=== PATIENT | male | born 1970 | race Caucasian/White ===

== ENCOUNTER 2016-11-17 13:42 | Inpatient (IN) | payer OTHER ==
--- NOTE | ~2016-11-17 | CO ---
Unit #: [id number] #: [id number] Patient: RACHID JAIN [id number] [facility] [address] [place] [address] [id number] I MR#: [id number] NAME: RACHID JAIN ROOM: [facility] Age: 46 Sex: M Admission Date: 11/17/2016 : 1970 Attending Physician: Bonilla Portillo M.D. Primary Care Physician: Generic Doctor Not In System CONSULTATION REPORT ORDERING PROVIDER Dr. Portillo. REASON FOR CONSULT Diabetic management. Nursing called with a critical blood sugar over 500. Yesterday, they reported that his average blood sugars have been ranging in the 300 and 400, and they were requesting an insulin orders. He was given an immediate dose of 25 units of NovoLog and his Levemir was increased by 10 units. Today, his blood sugars fasting is 187, before lunch with 488. It does not appear that he is compliant with a diabetic diet. We will continue to monitor blood sugars. No further changes to insulin at this time indication. Dictated by... Viv Rahman A.P.R.N. for Ana Gilliam/aníbal TD: 11/21/2016 20:06 JOB #: [id number] CONSULTATION REPORT Page 1 of 1 X VIV RAHMAN APRN CONSULTATION REPORT
--- NOTE | ~2016-11-17 | PN ---
Unit #: [id number] #: [id number] Patient: RACHID CORTES [id number] [facility] [address] [place] [address] [id number] MR#: [id number] NAME: RACHID CORTES ROOM: [facility] Age: 46 Sex: M Admission Date: 11/17/2016 : 1970 Attending Physician: Bonilla Portillo M.D. Admitting Physician: Bonilla Portillo M.D. Primary Care Physician: Generic Doctor Not In System [facility] PROGRESS NOTES DATE 11/18/2016 DISCUSSION Mr. Cortes is a 46-year-old white male who was seen today and chart was reviewed and case was discussed with the staff. He has been anxious, withdrawn though has not shown any agitation, irritability or behavioral problems and has been cooperative with treatment recommendations and has been taking medications and tolerating them fairly well with no reported side effects. MENTAL STATUS EXAMINATION Middle-aged white male who was casually dressed with fair personal hygiene and appears to be in no acute distress or discomfort. He was awake and alert with impaired attention and concentration. His mood was anxious with congruent affect. His speech is slow and restricted in content. His thought processes were disorganized with some looseness of associations and flight of ideas. His insight and judgement remains significantly impaired. TREATMENT PLAN 1. Will continue him on his current medications and detox protocol. Will monitor his response and make further adjustments as needed. 2. Will continue to follow up. Dictated by... Ana Herr/ermias TD: 11/18/2016 16:04 JOB #: [id number] Unit #: [id number] #: [id number] Patient: RACHID CORTES PROGRESS NOTES Page 1 of 1 X Bonilla Portillo MD PROGRESS NOTE
--- NOTE | ~2016-11-17 | A ---
[facility] Nutrition Therapy DATE: 11/19/16 Patient: RACHID JAIN Physician: RAFIF [address] Room/Bed: [address], Zip: [place] [address] Admit Date: 11/17/16 Date of : [birth year] Height: 5 10 Weight: [phone] NUTRITIONAL ASSESSMENT: REASON: NUTRITION RISK POINT- UNINTENTIONAL WEIGHT LOSS, CONSULT "DIETARY CONSULT, DIABETIC MANAGEMENT" PATIENT ADMITTED FOR ETOH ABUSE PMH: LONG HX ETOH ABUSE, DM (NON-COMPLIANT), HTN, HLD, HYPOTHYROIDISM Anthropometrics: HT: 5'10, WT: 170#, BMI: 24.4, %IBW: 102 Labs: NO LABS AVAILABLE Meds: NOVOLOG, LEVEMIR, DESYREL, MVI, DETOX PROTOCOL Assessment: PATIENT IS A 6 Y/O MALE ADMITTED FOR ETOH DETOX. PATIENT IS CURRENTLY UNEMPLOYED, HOMELESS, SMOKES 1 PPD, DRINKS A FIFTH OF ETOH DAILY, AND HAS FREQUENT COCAINE USE. PATIENT HAS A HX OF INPATIENT CHEMICAL DEPENDENCY TREATMENT. PATIENT STATED A GOOD APPETITE WITH NO RECENT WEIGHT CHANGES. NURSING REPORTS GOOD PO INTAKES AND THAT PATIENT HAS BEEN NON-COMPLIANT WITH HIS DIET. PATIENT HAS ALSO BEEN NON-COMPLIANT WITH HIS MEDICATIONS PRIOR TO ADMIT. PATIENT'S POC GLUCOSE LEVELS IN THE LAST 24 HOURS HAVE RANGED FROM 160-517 MG/DL. THERE ARE NO OTHER NUTRITION LAB VALUES AVAILABLE. THERE ARE NO SKIN OR GI ISSUES NOTED ATT. PATIENT'S BMI IS WITHIN A HEALTHY RANGE AND HE IS 102% OF HIS IBW. PATIENT IS ON A CC DIET WITH NO CAFFEINE. Dx: ALTERED NUTRIENT NEEDS R/T CURRENT CONDITION, DM AEB NEED FOR THERAPEUTIC DIET Intervention: CC DIET, MEDS PER MD, DETOX, PSYCH Monitoring, Evaluation and Goals: 1. ADEQUATE PO INTAKES >50% OF MEALS 2. PREVENT, CORRECT MICRO/MACRO NUTRIENT DEFICIENCIES MONITOR: WEIGHTS, LABS, PO/FLUID INTAKES Recommendations: 1. CONTINUE CC DIET WITH NO CAFFEINE TOLERATED. IF PATIENT HAS C/O HUNGER OFFER SNACKS BETWEEN MEALS 2. ORDER BMP AND HGBA1C TO ASSESS NUTRITIONAL STATUS OF PATIENT 3. ENCOURAGE ADEQUATE PO AND FLUID INTAKES AND COMPLIANCE WITH DIET/MEDICATIONS [facility] Therapy DATE: 11/19/16 Patient: RACHID JAIN Physician: COBY Address: [address] [facility] Room/Bed: [address], Zip: [place] [address] Admit Date: 11/17/16 Date of : [birth year] Height: 5 10 Weight: [phone] TO F/U PER PROTOCOL AND PRN R/T PATIENT MILDLY COMPROMISED Respectfully, NARESH LUND RD, LD [facility] cc: client file
--- NOTE | ~2016-11-17 | PN ---
Unit #: [id number] #: [id number] Patient: RACHID CORTES [id number] [facility] [address] [place] [address] [id number] I MR#: [id number] NAME: RACHID CORTES ROOM: [facility] Age: 46 Sex: M Admission Date: 11/17/2016 : 1970 Attending Physician: Bonilla Portillo M.D. Admitting Physician: Bonilla Portillo M.D. Primary Care Physician: Generic Doctor Not In System [facility] PROGRESS NOTES DATE 11/19/2016 DISCUSSION Mr. Cortes is a 46-year-old white male with alcohol dependence and mood disorder who was seen today and chart was reviewed and case was discussed with the staff. He has been anxious, withdrawn, depressed and agitated and irritable and reports not feeling good. Meanwhile, he has been cooperative with treatment recommendations and has been taking medications and tolerating them fairly well with no reported side effects. MENTAL STATUS EXAMINATION Middle-aged white male who was casually dressed with fair personal hygiene and appears to be in no acute distress or discomfort. He was awake and alert on interaction with intact orientation. His mood was anxious with congruent affect. He denies any suicidal or homicidal ideations and also denies any auditory or visual hallucinations. His insight and judgement remains slightly impaired. TREATMENT PLAN 1. Will continue on his current medications and treatment protocol. Will monitor his response to medications and make further adjustments as needed. 2. Will continue to follow up. Dictated by... Ana Herr/ermias TD: 11/19/2016 18:08 JOB #: [id number] Unit #: [id number] #: [id number] Patient: RACHID CORTES PROGRESS NOTES Page 1 of 1 X Bonilla Portillo MD PROGRESS NOTE
--- NOTE | ~2016-11-17 | DS ---
Unit #: [id number] #: [id number] Patient: RACHID CORTES [id number] [facility] [place] [address] [id number] I MR#: [id number] NAME: RACHID CORTES ROOM: 84 Age: 46 Sex: M Admission Date: 11/17/2016 : 1970 Discharge Date: 11/22/2016 Attending Physician: Bonilla Portillo M.D. DISCHARGE SUMMARY IDENTIFYING DATA Mr. Cortes is a 46-year-old white male, who was transferred to us from the hospital emergency room. DISCHARGE DIAGNOSES Psychiatric: Alcohol dependence, moderate and acute withdrawals; alcohol-induced mood disorder. Medical: Diabetes mellitus. Stressors: Moderate psychosocial stressors. HISTORY OF PRESENT ILLNESS Please see initial psychiatric evaluation for details. PAST PSYCHIATRIC HISTORY Please see initial psychiatric evaluation for details. PAST MEDICAL HISTORY Please see initial psychiatric evaluation for details. HOSPITAL COURSE The patient was admitted to the adult chemical dependency unit at [facility] and was oriented to the hospital environment. Routine p.r.n. medications were initiated and he was started on the detox protocol. However, he was seen to be once again agitated, irritable, and showing very poor insight into situation and constantly threatening to leave because he is not getting enough food, even though, the dietary consultation was requested as he is diabetic, he was constantly making statements "I'm pissed off, I'm angry." However, as soon as he finished the detox, he was not feeling to stay here any longer and as such, it was decided that he will be discharged home and will continue treatment on an outpatient basis. DISCHARGE MEDICATIONS Levemir 40 units at bedtime for diabetes. DISCHARGE CONDITION Stable. PROGNOSIS Fair. Dictated by... Bonilla Portillo M.D. Unit #: [id number] #: [id number] Patient: RACHID CORTES IAA/modl TD: 11/22/2016 06:38 JOB #: [id number] DISCHARGE SUMMARY Page 1 of 1 X Bonilla Portillo MD X DISCHARGE SUMMARY
--- NOTE | ~2016-11-17 | CO ---
Unit #: [id number] #: [id number] Patient: RACHID JAIN [id number] [place] [address] [id number] I MR#: [id number] NAME: RACHID JAIN ROOM: 84 Age: 46 Sex: M Admission Date: 11/17/2016 : 1970 Attending Physician: Bonilla Portillo M.D. Primary Care Physician: Generic Doctor Not In System Consultation Date: 11/18/2016 CONSULTATION REPORT YING Moya is a 46-year-old with diabetes mellitus. His treatment was outlined in his admission H and P dated 11/17/2016. We will add a NovoLog sliding scale. Monitor Accu-Cheks a.c. and h.s. and adjust accordingly. Dictated by... Priya Brunner P.A.-C. for Ana Gilliam/aníbal TD: 11/20/2016 12:01 JOB #: [id number] CONSULTATION REPORT Page 1 of 1 X Priya Brunner CONSULTATION REPORT
--- NOTE | ~2016-11-17 | PN ---
Unit #: [id number] #: [id number] Patient: RACHID CORTES [id number] [facility] [address] [place] [address] [id number] I MR#: [id number] NAME: RACHID CORTES ROOM: [facility] Age: 46 Sex: M Admission Date: 11/17/2016 : 1970 Attending Physician: Bonilla Portillo M.D. Admitting Physician: Bonilla Portillo M.D. Primary Care Physician: Generic Doctor Not In System [facility] PROGRESS NOTES DATE 11/20/2016 DISCUSSION Mr. Cortes is a 46-year-old, white male with substance abuse and mood disorder who was seen today and chart was reviewed and case was discussed with the staff. He was laying in his bed and was seen to be anxious and restless and stated that he is feeling agitated and irritable. Meanwhile, he has been taking medications and tolerating them fairly well. MENTAL STATUS EXAM Middle-aged white male who was casually dressed with fair personal hygiene, appears to be in no acute distress or discomfort. He was awake and alert on interaction with intact orientation. His mood was anxious with congruent affect. His speech was slow and tangential. His thought processes were disorganized with some looseness of associations. His insight and judgement remains slightly impaired. TREATMENT PLAN 1. We will continue him on his current medications and treatment protocol. We will monitor his response to the medication and make further adjustment as needed. 2. We will continue to follow up. Dictated by... Ana Herr/alfonzo TD: 11/22/2016 00:31 JOB #: [id number] Unit #: [id number] #: [id number] Patient: RACHID CORTES PROGRESS NOTES Page 1 of 1 X Bonilla Portillo MD PROGRESS NOTE
--- NOTE | ~2016-11-17 | HP ---
Unit #: [id number] #: [id number] Patient: ABDI JAIN [id number] [place] [address] [id number] I MR#: [id number] NAME: ABDI JAIN ROOM: P184 Age: 46 Sex: M Admission Date: 11/17/2016 : 1970 Attending Physician: Bonilla Portillo M.D. Admitting Physician: Bonilla Portillo M.D. Primary Care Physician: Generic Doctor Not In System HISTORY AND PHYSICAL HISTORY OF PRESENT ILLNESS Abdi is a 46 year old admitted to [facility] because of his continued abuse of alcohol. He has had other admissions to this facility for the same. PAST MEDICAL HISTORY 1. Long history of alcohol abuse. 2. Diabetes mellitus, he is noncompliant with his medications. 3. High blood pressure. 4. Hyperlipidemia. 5. Hypothyroidism. PAST SURGICAL HISTORY 1. Extraction of his right eye after an injury. 2. Appendectomy. 3. Bilateral wrists. ALLERGIES No known drug allergies. SOCIAL HISTORY Smokes greater than one pack per day. Drinks a fifth of liquor on a daily basis and admits to using cocaine on occasion. FAMILY HISTORY Medically noncontributory. REVIEW OF SYSTEMS CONSTITUTIONAL: No fever or chills. HEENT: Denies any sore throat, ear pain or runny nose. CARDIOVASCULAR: Denies chest pain, irregular heart rhythm or palpitations. CHEST: Denies shortness of breath or cough. No hemoptysis. GASTROINTESTINAL: Denies nausea, vomiting, diarrhea or chronic constipation. ENDOCRINE: Denies history of increased thirst or urination. No recent significant weight loss or gain. GENITOURINARY: Denies dysuria, frequency, or hematuria. SKIN: Denies any rashes. HEMATOLOGIC: Denies history of increased bleeding or bruising. MUSCULOSKELETAL: Denies any hot, swollen joints. No generalized muscle pain. NEUROLOGIC: Denies problems with his speech. Right eye is absent otherwise no problems with the vision in his left. No frequent severe Unit #: [id number] #: [id number] Patient: ABDI JAIN headaches. No numbness, tingling or weakness in any extremity. Denies loss of bladder or bowel control. CURRENT MEDICATIONS Detox protocol Levemir 22 units q.h.s. NovoLog sliding scale PHYSICAL EXAMINATION GENERAL: Alert, well-nourished, in no apparent distress. VITAL SIGNS: Blood pressure 132/86, heart rate 80, respirations 16, temperature 98.6. WEIGHT: 170 pounds. HEIGHT: 5'10". SKIN: Warm and dry without rash or lesion. HEENT: Normocephalic. TMs not viewed. Oral and nasal passages clear. Left conjunctivae is clear. Pupil is round and reactive to light. Extraocular movements intact. Right eye is missing. NECK: Supple without lymphadenopathy or thyromegaly. HEART: Regular rate and rhythm without murmur. LUNGS: Clear. ABDOMEN: Soft, nontender. : Not done. EXTREMITIES: No evidence of cyanosis, clubbing or edema. Moves all extremities without focal deficit. NEUROLOGICAL: Grossly within normal limits. Cranial Nerves: II: Visual gaxiola are intact in the left eye. Right eye is absent. III, IV AND : Extraocular movements intact in the left eye. Pupils are equal, round and reactive to light on the left. Right eye is absent. V: Facial sensation is grossly normal. VII: Facial movements and expression are normal. VIII: Auditory acuity grossly intact. IX, X: Uvula is midline. Phonation is normal. XI: Patient shrugs shoulders and turns head normally. XII: Tongue protrudes in the midline. Sensory and Motor Function: Sensory and motor sensation is grossly normal. Motor: moves all extremities well. Coordination: Gait is normal. Deep Tendon Reflexes: Intact. IMPRESSION Psychiatric admission RECOMMENDATIONS PSYCHIATRIC: Per psychiatrist. MEDICAL: I see no contraindications to participating in facility's activities. MEDICAL PROGNOSIS Good. MEDICAL CONDITION Stable. Unit #: [id number] #: [id number] Patient: ABDI JAIN Dictated by... Priya Brunner P.A.-C. for Ana Gilliam/alfonzo TD: 11/17/2016 21:29 JOB #: [id number] HISTORY AND PHYSICAL Page 1 of 1 X Priya Brunner HISTORY AND PHYSICAL
--- NOTE | ~2016-11-17 | PN ---
Unit #: [id number] #: [id number] Patient: RACHID CORTES [id number] [facility] [address] [place] [address] [id number] I MR#: [id number] NAME: RACHID CORTES ROOM: [facility] Age: 46 Sex: M Admission Date: 11/17/2016 : 1970 Attending Physician: Bonilla Portillo M.D. Admitting Physician: Bonilla Portillo M.D. Primary Care Physician: Generic Doctor Not In System [facility] PROGRESS NOTES DATE 11/21/2016 DISCUSSION Mr. Cortes is a 46-year-old, white male who was seen today and chart was reviewed and case was discussed with the staff. He once again was getting agitated and irritable and has been showing very poor frustration tolerance and any small thing has been ticking him off and getting him angry and agitated and has not really been able to control his temper and actually invest in treatment. MENTAL STATUS EXAM Middle-aged white male who was casually dressed with fair personal hygiene, appears to be in no acute distress or discomfort. He was awake and alert on interaction with intact orientation. His mood was anxious with congruent affect. His speech was slow and restricted in content. He denies any suicidal or homicidal ideation. His insight and judgement remains significantly impaired. TREATMENT PLAN 1. We will continue him on his current medications and treatment protocol. We will monitor his response to the medication and make further adjustments as needed. 2. We will continue to follow up. Dictated by... Ana Herr/alfonzo TD: 11/22/2016 04:35 JOB #: [id number] Unit #: [id number] #: [id number] Patient: RACHID CORTES PROGRESS NOTES Page 1 of 1 X Bonilla Portillo MD PROGRESS NOTE
--- NOTE | ~2016-11-17 | PA ---
Unit #: [id number] #: [id number] Patient: RACHID CORTES [id number] [facility] [address] [place] [address] [id number] I MR#: [id number] NAME: RACHID CORTES ROOM: P184 Age: 46 Sex: M Admission Date: 11/17/2016 : 1970 Date of Assessment: 11/17/2016 Attending Physician: Bonilla Portillo M.D. Admitting Physician: Bonilla Portillo M.D. Primary Care Physician: Generic Doctor Not In System PSYCHIATRIC ASSESSMENT DATE OF SERVICE 11/17/2016. IDENTIFYING DATA Mr. Cortes is a 46-year-old single white male, who is known to us from previous multiple encounters and is a resident of [place], [place], and was transferred to us from [facility] in [place], where he presented to the emergency room with a blood alcohol level of 0.110. CHIEF COMPLAINT "I'm an alcoholic." HISTORY OF PRESENT ILLNESS Mr. 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 SUBSTANCE ABUSE HISTORY The patient reports history of experimentation with cocaine, but alcohol has been his drug of choice as he reports that he has been drinking since he was 10 years old and currently has been drinking a fifth of vodka a day. PAST PSYCHIATRIC HISTORY The patient has had history [facility]. Review of the medical records indicate currently he is not active in treatment program, is not seeing a psychiatrist, and is not taking any psychotropic medications. PAST MEDICAL HISTORY Significant for hypertension, diabetes mellitus, hypothyroidism. ALLERGIES No known medication allergies. Unit #: [id number] #: [id number] Patient: RACHID CORTES PERSONAL AND SOCIAL HISTORY A 46-year-old white male, who reports that he is single, unemployed, and essentially homeless and has poor social support system. MENTAL STATUS EXAMINATION Middle-aged white male, who was casually dressed with fair personal hygiene, appears to be in no acute distress or discomfort. He was awake and alert on interaction with intact orientation to time, place, and person. His mood was anxious and depressed with a congruent affect. His speech was slow and goal directed. His thought processes were disorganized with some looseness of associations and suicidal ideations. His insight and judgment remain significantly impaired. DIAGNOSTIC IMPRESSION Psychiatric: Alcohol dependence, moderate and acute withdrawals; alcohol-induced mood disorder. Medical: None. Stressors: Moderate psychosocial stressors. TREATMENT PLAN 1. The patient has presented with history of mood disorder and has been decompensating and will need inpatient hospitalization for detoxification, safety, and stabilization. We will start him on detox protocol. We will closely monitor for any worsening withdrawal symptoms. 2. Supportive therapy was provided to the patient. 3. Safe, structured, and nourishing environment will be provided. ESTIMATED LENGTH OF STAY 5 to 7 days. ABILITY TO HELP SELF Limited. WILLINGNESS TO HELP SELF The patient appears to be willing to help self. STRENGTHS 1. Communicative. 2. Cooperative. PROBLEMS 1. Chronic dysphoric symptoms. 2. Poor social support system. DISCHARGE CRITERIA This will be contingent upon the patient's ability to show resolution of his depression and anxiety and his ability to stay safe to himself, particularly after discharge from the hospital. Dictated by... Ana Herr/aníbal TD: 11/18/2016 07:37 JOB #: [id number] Unit #: [id number] #: [id number] Patient: RACHID CORTES PSYCHIATRIC ASSESSMENT Page 1 of 1 X Bonilla Portillo MD X PSYCHIATRIC ASSESSMENT
== END 2016-11-22 09:39 | disposition home or self-care (01) | DRG 897 ==
LOC: P1E 13:42
PROC: HZ2ZZZZ Detoxification Services for Substance Abuse Treatment (ICD-10-PCS; principal; 2016-11-17)
DX: F10.239 Alcohol dependence with withdrawal, unspecified (principal); F10.24 Alcohol dependence with alcohol-induced mood disorder; I10 Essential (primary) hypertension; E78.5 Hyperlipidemia, unspecified; E03.9 Hypothyroidism, unspecified; F17.210 Nicotine dependence, cigarettes, uncomplicated; Z59.0 Homelessness; Z56.0 Unemployment, unspecified; E11.9 Type 2 diabetes mellitus without complications
CPT/HCPCS: 82947; 86592

== ENCOUNTER 2016-12-06 07:12 | Inpatient (IN) | payer OTHER ==
--- NOTE | ~2016-12-06 | PN ---
Unit #: [id number] #: [id number] Patient: RACHID CORTES [id number] [facility] [address] [place] [address] [id number] MR#: [id number] NAME: RACHID CORTES. ROOM: 86 Age: 46 Sex: M Admission Date: 12/06/2016 : 1970 Attending Physician: Bonilla Portillo M.D. Admitting Physician: Bonilla Portillo M.D. Primary Care Physician: Generic Doctor Not In System [facility] PROGRESS NOTES DATE December 08, 2016 DISCUSSION Mr. Cortes is a 46-year-old white male, who was seen today and chart was reviewed and the case was discussed with the staff. He remains anxious, withdrawn, and seclusive to himself. Meanwhile, he has been taking the medications and tolerating them fairly well with no reported side effects. MENTAL STATUS EXAMINATION Middle-aged white male, who was casually dressed with fair personal hygiene and appears to be in no acute distress or discomfort. He was awake and alert with impaired attention and concentration. His mood is anxious with a congruent affect. His speech is slow and tangential. His thought processes are disorganized with some looseness of associations. His insight and judgment remain significantly impaired. TREATMENT PLAN 1. We will continue him on his current medications and treatment protocol, and will monitor his response to the medications, and make further adjustments as needed. 2. We will continue to followup. Dictated by... Ana Herr/antwon TD: 12/08/2016 11:10 JOB #: [id number] Unit #: [id number] #: [id number] Patient: RACHID CORTES PROGRESS NOTES Page 1 of 1 X Bonilla Portillo MD PROGRESS NOTE
--- NOTE | ~2016-12-06 | A ---
[facility] Nutrition Therapy DATE: 12/08/16 Patient: RACHID JAIN Physician: COBY Address: NO PERMANENT ADDRESS Room/Bed: [address], Zip: [place] [address] Admit Date: 12/06/16 Date of : [birth year] Height: 5 10 Weight: [phone] NUTRITIONAL ASSESSMENT: REASON: CONSULT "DIETARY CONSULT" PATIENT ADMITTED FOR ETOH DETOX PMH: DM, HYPOTHYROIDISM, LONG HX ETOH ABUSE, HLD Anthropometrics: HT: 5'10", WT: 170#, BMI: 24.4 Labs: NO LABS AVAILABLE Meds: DETOX PROTOCOL, YOCASTA FERREIRA Assessment: PATIENT IS A 46 Y/O ADMITTED FOR ETOH DETOX. PATIENT IS CURRENTLY UNEMPLOYED, HOMELESS, SMOKES 1 PPD, DRINKS A FIFTH OF ETOH DAILY, AND HAS OCCASIONAL COCAINE USE. PATIENT STATED A GOOD APPETITE WITH NO WEIGHT CHANGES IN MONTHS. NURSING REPORTS GOOD PO INTAKES. PATIENT HAS A HX OF INPATIENT PSYCH AND CHEMICAL DEPENDENCY TREATMENTS AND ALSO HAS BEEN NON-COMPLIANT WITH HIS MEDICATIONS. IT IS NOTED THAT PATIENT RELAPSED 1-2 DAYS FOLLOWING LAST D/C FROM FACILITY SEVERAL WEEKS AGO. RD ASSESSED 11/19/16- NOTE REVIEWED. PATIENT IS ON A CC DIET WITH NO CAFFEINE, DID NOT SCORE ANY NUTRITIONAL RISK POINTS, AND HAS NO GI OR SKIN ISSUES NOTED ATT. Dx: ALTERED NUTRIENT NEEDS R/T CURRENT CONDITION, DIABETES AEB NEED FOR THERAPEUTIC DIET Intervention: CC DIET, MEDS PER MD, DETOX, PSYCH Monitoring, Evaluation and Goals: 1. ADEQUATE PO INTAKES >50% OF MEALS 2. PREVENT, CORRECT MICRO/MACRO NUTRIENT DEFICIENCIES MONITOR: WEIGHTS, LABS, PO/FLUID INTAKES Recommendations: 1. CONTINUE CC DIET TOLERATED. IF PATIENT HAS C/O HUNGER OFFER SNACKS BETWEEN MEALS 2. ENCOURAGE ADEQUATE PO AND FLUID INTAKES 3. OBTAIN NEW LABS TO ASSESS PATIENT'S NUTRITIONAL STATUS RD TO F/U PER PROTOCOL AND PRN R/T PATIENT MILDLY COMPROMISED [facility] Nutrition Therapy DATE: 12/08/16 Patient: RACHID JAIN Physician: COBY Address: NO PERMANENT ADDRESS Room/Bed: [address], Zip: [place] [address] Admit Date: 12/06/16 Date of : [birth year] Height: 5 10 Weight: [phone] Respectfully, NARESH LUND RD, LD Food and Nutritional Services [facility] cc: client file
--- NOTE | ~2016-12-06 | DS ---
Unit #: [id number] #: [id number] Patient: RACHID CORTES [id number] [facility] [address] [place] [address] [id number] I MR#: [id number] NAME: RACHID CORTES ROOM: 86 Age: 46 Sex: M Admission Date: 12/06/2016 : 1970 Discharge Date: 12/10/2016 Attending Physician: Bonilla Portillo M.D. Primary Care Physician: Generic Doctor Not In System DISCHARGE SUMMARY IDENTIFYING DATA Mr. Cortes is a 46-year-old single white male who is a resident of [place], [place] and is known to us from previous encounter and was transferred to us from [facility] in [place]. DISCHARGE DIAGNOSES Psychiatric: Alcohol dependence, moderate and acute withdrawals; alcohol-induced mood disorder. Medical: Hypertension, diabetes mellitus, hypothyroidism. Stressors: Moderate psychosocial stressors. HISTORY OF PRESENT ILLNESS Please see initial psychiatric evaluation for details. PAST PSYCHIATRIC HISTORY Please see initial psychiatric evaluation for details. PAST MEDICAL HISTORY Please see initial psychiatric evaluation for details. HOSPITAL COURSE The patient was admitted to the adult chemical dependency and psychiatric unit at [facility] and was oriented to the hospital environment. Routine p.r.n. medications were initiated, and he was started on the alcohol detox protocol and was closely monitored. He was taking the medications regularly and was tolerating them fairly well and was able to show a decent therapeutic response and was able to come out of the detox without any complications and was willing to continue treatment on an outpatient basis. DISCHARGE MEDICATIONS NovoLog 6 units t.i.d. for diabetes, Levemir 48 units at bedtime for diabetes, and Carafate 1 g q.i.d. for irritable bowel syndrome. DISCHARGE CONDITION Stable. PROGNOSIS Fair. Dictated by... Bonilla Protillo M.D. Unit #: [id number] #: [id number] Patient: RACHID CORTES IAA/modl TD: 12/10/2016 09:45 JOB #: [id number] DISCHARGE SUMMARY Page 1 of 1 X Bonilla Portillo MD DISCHARGE SUMMARY
--- NOTE | ~2016-12-06 | PN ---
Unit #: [id number] #: [id number] Patient: RACHID CORTES [id number] [facility] [address] [place] [address] [id number] MR#: [id number] NAME: RACHID CORTES. ROOM: P186 Age: 46 Sex: M Admission Date: 12/06/2016 : 1970 Attending Physician: Bonilla Portillo M.D. Admitting Physician: Bonilla Portillo M.D. Primary Care Physician: Generic Doctor Not In System [facility] PROGRESS NOTES DATE 12/09/2016 DISCUSSION Mr. Cortes is a 46-year-old, white male who was seen today and chart was reviewed and case was discussed with the staff. He has been doing fairly well and appears to be coming out of the detox without any complications and has been taking the medications and tolerating them fairly well with no reported side effects. MENTAL STATUS EXAM Middle-aged white male who was casually dressed with fair personal hygiene, appears to be in no acute distress or discomfort. He was awake and alert on interaction with intact orientation. His mood was anxious with congruent affect. He denies any suicidal or homicidal ideation. His insight and judgement remains slightly impaired. TREATMENT PLAN 1. We will continue him on his current medications and treatment protocol. We will monitor his response to the medication and make further adjustments as needed. 2. We will continue to follow up. Dictated by... Ana Herr/alfonzo TD: 12/09/2016 22:31 JOB #: [id number] Unit #: [id number] #: [id number] Patient: RACHID CORTES [facility] PROGRESS NOTES Page 1 of 1 X Bonilla Portillo MD X PROGRESS NOTE
--- NOTE | ~2016-12-06 | CO ---
Unit #: [id number] #: [id number] Patient: ABDI JAIN [id number] [place] [address] [id number] MR#: [id number] NAME: ABDI JAIN ROOM: 86 Age: 46 Sex: M Admission Date: 12/06/2016 : 1970 Attending Physician: Bonilla Portillo M.D. Primary Care Physician: Generic Doctor Not In System Consultation Date: 12/06/2016 CONSULTATION REPORT SUBJECTIVE Abdi is a 46-year-old with diabetes. He has had numerous admissions to this facility because of his abuse of alcohol. On each admission, he has reported that he is noncompliant with his diabetic medications. We have again been asked to review his medications. The patient was seen for his admission H and P, and past medical history was outlined as was treatment for his medical problems. Please see H and P dated 11/17/2016. Dictated by... Priya Brunner P.A.-C. for Ana Gilliam/aníbal TD: 12/11/2016 00:59 JOB #: [id number] CONSULTATION REPORT Page 1 of 1 X Priya Brunner CONSULTATION REPORT
--- NOTE | ~2016-12-06 | PN ---
Unit #: [id number] #: [id number] Patient: RACHID CORTES [id number] [facility] [address] [place] [address] [id number] I MR#: [id number] NAME: RACHID CORTES. ROOM: 86 Age: 46 Sex: M Admission Date: 12/06/2016 : 1970 Attending Physician: Bonilla Portillo M.D. Admitting Physician: Bonilla Portillo M.D. Primary Care Physician: Generic Doctor Not In System [facility] PROGRESS NOTES DATE 12/07/2016 DISCUSSION Mr. Cortes is a 46-year-old, white male who was seen today and chart was reviewed and case was discussed with the staff. He has been anxious, withdrawn though has not shown any agitation, irritability or behavioral problems. He has been cooperative with treatment recommendations. He has been taking the medications and tolerating them fairly well with no reported side effects. MENTAL STATUS EXAM Middle-aged white male who was casually dressed with fair personal hygiene, appears to be in no acute distress or discomfort. He was awake and alert on interaction with intact orientation. His mood was anxious with congruent affect. His speech was slow and goal directed. He denies any suicidal or homicidal ideation. Also, denies any auditory or visual hallucinations. His insight and judgement remains slightly impaired. TREATMENT PLAN 1. We will continue him on his current medications and treatment protocol. We will monitor his response to the medication and make further adjustments as needed. 2. We will continue to follow up. Dictated by... Ana Herr/alfonzo TD: 12/07/2016 23:35 JOB #: [id number] Unit #: [id number] #: [id number] Patient: RACHID CORTES [facility] PROGRESS NOTES Page 1 of 1 X Bonilla Portillo MD PROGRESS NOTE
--- NOTE | ~2016-12-06 | HP ---
Unit #: [id number] #: [id number] Patient: ABDI JAIN [id number] [place] [address] [id number] I MR#: [id number] NAME: ABDI JAIN ROOM: P186 Age: 46 Sex: M Admission Date: 12/06/2016 : 1970 Attending Physician: Bonilla Portillo M.D. Admitting Physician: Bonilla Portillo M.D. Primary Care Physician: Generic Doctor Not In System HISTORY AND PHYSICAL NOTE Abdi is a 46 year old admitted to [facility] because of his continued abuse of alcohol. He was recently discharged after treatment for the same. The patient was seen and H and P dated 11/17/2016 was reviewed. This is current. No changes. Please see H and P dated 11/17/2016. Dictated by... Allen PoeAOg. for Ana Gilliam/alfonzo TD: 12/07/2016 01:10 JOB #: [id number] HISTORY AND PHYSICAL Page 1 of 1 X Priya Brunner HISTORY AND PHYSICAL
--- NOTE | ~2016-12-06 | PA ---
Unit #: [id number] #: [id number] Patient: RACHID JAIN [id number] [facility] [place] [place] [address] [id number] MR#: [id number] NAME: RACHID JAIN ROOM: P186 Age: 46 Sex: M Admission Date: 12/06/2016 : 1970 Date of Assessment: 12/06/2016 Attending Physician: Bonilla Portillo M.D. Admitting Physician: Bonilla Portillo M.D. Primary Care Physician: Generic Doctor Not In System PSYCHIATRIC ASSESSMENT DATE OF SERVICE 12/06/2016. IDENTIFYING DATA Mr. Jain is a 46-year-old, single, white male, who is a resident of [place], [place] and is known to us from previous encounter, was self-referred to the hospital and was transferred to us from [facility]. CHIEF COMPLAINT "I've been drinking a fifth a day for years." HISTORY OF PRESENT ILLNESS Mr. Jain is a 46-year-old white male with a long history of alcohol dependence, who was transferred to us from [facility] in [place], where he presented with blood alcohol level of 0.137. He reports that he has been drinking a fifth a day for years and reports recent detox at [facility] [place], but relapsed a couple of days after being discharged and currently has been drinking heavily and has significant withdrawal symptoms. Upon presentation, his CIWA score was 17 and endorsed increasing anxiety, headaches, tactile auditory and visual hallucination and was seen to have visible tremors and was in significant distress and discomfort. He also reports increasing depression, anxiety, poor social support system, stating that he has been homeless and has been decompensating and reports psychomotor retardation, feelings of hopelessness and helplessness, but denies any suicidal ideations, intent, or plan. SUBSTANCE ABUSE HISTORY The patient reports history of alcohol dependence and has been drinking since he was 10 years old and currently has been drinking a fifth a day. PAST PSYCHIATRIC HISTORY The patient has had a history of multiple inpatient psychiatric and chemical dependency treatments and has been diagnosed and treated for alcohol dependence. Review of the medical records indicate currently he is not active in any treatment program, is not seeing a psychiatrist, not taking psychotropic medications. PAST MEDICAL HISTORY Significant for hypertension, diabetes mellitus, and hypothyroidism. ALLERGIES Unit #: [id number] #: [id number] Patient: RACHID JAIN No known medication allergies. PERSONAL AND SOCIAL HISTORY A 46-year-old white male, who reports that he is single, unemployed, homeless and has poor social support system. MENTAL STATUS EXAMINATION Middle-aged white male, who was casually dressed with fair personal hygiene, appears to be in no acute distress or discomfort. He was awake and alert on interaction with intact orientation to time, place, and person. His mood was anxious and depressed with a congruent affect. His speech was slow and goal directed. He denies any suicidal or homicidal ideations and also denies any auditory or visual hallucinations. His insight and judgment remain significantly impaired. DIAGNOSTIC IMPRESSION Psychiatric: Alcohol dependence, moderate and acute withdrawals; alcohol-induced mood disorder. Medical: Diabetes mellitus, hypertension, hypothyroidism. Stressors: Moderate psychosocial stressors. TREATMENT PLAN 1. The patient has presented with a history of substance abuse and mood disorder, and has been decompensating and will need inpatient hospitalization for detoxification, safety, and stabilization. We will start him back on his home medications and detox protocol will be initiated as well. 2. Supportive therapy was provided to the patient. 3. Safe, structured, and nourishing environment will be provided. ESTIMATED LENGTH OF STAY 4 to 5 days. ABILITY TO HELP SELF Limited. WILLINGNESS TO HELP SELF The patient appears to be willing to help self. STRENGTHS 1. Communicative. 2. Cooperative. PROBLEMS 1. Chronic dysphoric symptoms. 2. Chronic chemical dependency. 3. Poor social support system. DISCHARGE CRITERIA This will be contingent upon the patient's ability to go through detox without having any significant withdrawal symptoms as well as the ability to stay safe to himself, particularly after discharge from the hospital. Dictated by... Unit #: [id number] #: [id number] Patient: RACHID JAIN Ana Herr/aníbal TD: 12/07/2016 06:50 JOB #: [id number] PSYCHIATRIC ASSESSMENT Page 1 of 1 X Bonilla Portillo MD X PSYCHIATRIC ASSESSMENT
[2016-12-07 09:42] LABS: URINE APPEARANCE CLEAR; URINE BILIRUBIN NEG (NEG); URINE BLOOD NEG (NEG); URINE COLOR YELLOW; URINE GLUCOSE >1000 MG/DL (NEG); URINE KETONE 1+ (NEG); URINE LEUKOCYTE ESTERASE NEG (NEG); URINE NITRATE NEG (NEG); URINE PH 6.5 (5-8); URINE PROTEIN NEG (NEG); URINE UROBILINOGEN 0.2 MG/DL (NEG)
[2016-12-07 10:35] LABS: AMPHETAMINE NEG (NEG); BARBITURATES NEG (NEG); BENZODIAZEPINES NEG (NEG); COCAINE NEG (NEG); MARIJUANA NEG (NEG); OPIATES NEG (NEG); TRICYCLIC ANTIDEPRESSANTS NEG (NEG); U METHADONE NEG (NEG)
== END 2016-12-10 09:49 | disposition home or self-care (01) | DRG 897 ==
LOC: P1E 13:39
PROVIDERS: Psychiatry & Neurology Psychiatry
PROC: HZ2ZZZZ Detoxification Services for Substance Abuse Treatment (ICD-10-PCS; principal; 2016-12-06)
DX: F10.239 Alcohol dependence with withdrawal, unspecified (principal); F10.24 Alcohol dependence with alcohol-induced mood disorder; I10 Essential (primary) hypertension; E11.9 Type 2 diabetes mellitus without complications; E03.9 Hypothyroidism, unspecified
CPT/HCPCS: 80307; 81003; 82947; 86592

== ENCOUNTER 2016-12-15 23:10 | Emergency (ER) | payer OTHER ==
[2016-12-16 02:30] LABS: BASOPHIL# 0.1 X10e3 (0-0.3); DIFF IND NO; EOSINOPHIL# 0.1 X10e3 (0-0.7); HEMATOCRIT 39.7 % (38.0-50.0); HEMOGLOBIN 13.2 gm/dL (13.0-16.0); LYMPHOCYTE# 2.2 X10e3 (1.0-3.5); LYMPHOCYTE% 27.1 % (17.0-45.0); MEAN CORPUSCULAR HEMOGLOBIN 31.9 PG (28-34); MEAN CORPUSCULAR HGB CONC 33.2 g/dL (30-36); MEAN PLATELET VOLUME 8.7 FL (6.5-11.5); MONOCYTE# 0.3 X10e3 (0-1.0); MONOCYTE% 3.9 % (3.0-12.0); NEUTROPHIL# 5.5 X10e3 (1.5-7.1); PLATELET COUNT 184 X10e3 (140-420); RED BLOOD COUNT 4.14 X10e (3.90-5.60); RED CELL DISTRIBUTION WIDTH 13.9 % (11.0-15.5); WHITE BLOOD COUNT 8.2 X10e3 (4.0-10.5)
[2016-12-16 03:16] LABS: CALCIUM SERUM 8.9 mg/dL (8.4-10.2); GLOM FILT RATE Estimated 88.6 mL/min (>60); POTASSIUM 4.1 mmol/L (3.5-5.1)
[2016-12-16 04:23] LABS: AMPHETAMINE NEG (NEG); BARBITURATES NEG (NEG); BENZODIAZEPINES NEG (NEG); COCAINE NEG (NEG); MARIJUANA NEG (NEG); OPIATES NEG (NEG); TRICYCLIC ANTIDEPRESSANTS NEG (NEG); U METHADONE NEG (NEG)
== END 2016-12-16 06:52 | disposition home or self-care (01) ==
LOC: CED 23:10
PROVIDERS: Nurse Practitioner
DX: F10.10 Alcohol abuse, uncomplicated (principal); I10 Essential (primary) hypertension; E11.9 Type 2 diabetes mellitus without complications; F17.200 Nicotine dependence, unspecified, uncomplicated; Y90.7 Blood alcohol level of 200-239 mg/100 ml
CPT/HCPCS: 36415; 80048; 80307; 82947; 85025; 96360; 96361; 99284; G0480

== ENCOUNTER 2016-12-16 14:06 | Emergency (ER) | payer OTHER ==
[2016-12-16 15:32] LABS: CALCIUM SERUM 8.5 mg/dL (8.4-10.2); GLOM FILT RATE Estimated 88.6 mL/min (>60); POTASSIUM 4.3 mmol/L (3.5-5.1)
== END 2016-12-16 18:30 | disposition home or self-care (01) ==
LOC: CED 14:06
PROVIDERS: Emergency Medicine
DX: T51.91XA Toxic effect of unspecified alcohol, accidental (unintentional), initial encounter (principal); E86.0 Dehydration; E11.65 Type 2 diabetes mellitus with hyperglycemia; I10 Essential (primary) hypertension; F17.210 Nicotine dependence, cigarettes, uncomplicated
CPT/HCPCS: 36415; 80048; 82947; 96360; 99284; G0480

== ENCOUNTER 2016-12-16 22:29 | Emergency (ER) | payer OTHER | END 2016-12-17 06:37 | disposition home or self-care (01) | LOC: CED 22:29 | DX: F10.129 Alcohol abuse with intoxication, unspecified (principal); E11.9 Type 2 diabetes mellitus without complications; F17.200 Nicotine dependence, unspecified, uncomplicated | CPT/HCPCS: 99282 ==

== ENCOUNTER 2017-01-08 07:00 | Inpatient (IN) | payer OTHER ==
--- NOTE | ~2017-01-08 | HP ---
Unit #: [id number] #: [id number] Patient: RACHID JAIN [id number] [place] [address] [id number] I MR#: [id number] NAME: RACHID JAIN. ROOM: 77 Age: 46 Sex: M Admission Date: 01/08/2017 : 1970 Attending Physician: Bonilla Portillo M.D. Admitting Physician: Bonilla Portillo M.D. Primary Care Physician: Primary Care Physician No HISTORY AND PHYSICAL HISTORY OF PRESENT ILLNESS The patient is a 46-year-old male admitted to [facility] on 01/08/2017 for alcohol abuse. PAST MEDICAL HISTORY 1. Diabetes 2. Hypertension 3. Hyperlipidemia 4. Hypothyroidism 5. GERD 6. Alcohol abuse 7. Nicotine dependence PAST SURGICAL HISTORY 1. Right eye removal 2. Appendectomy 3. Bilateral wrists SOCIAL HISTORY He is unemployed and homeless. He smokes one pack of cigarettes daily and drinks at least a fifth of alcohol per day. FAMILY MEDICAL HISTORY Noncontributory. ALLERGIES No known drug allergies. CURRENT MEDICATIONS 1. NovoLog 2. Levemir 3. Carafate REVIEW OF SYSTEMS CONSTITUTIONAL: No fever or chills. HEENT: Denies any sore throat, ear pain or runny nose. CARDIOVASCULAR: Denies chest pain, irregular heart rhythm or palpitations. CHEST: Denies shortness of breath or cough. No hemoptysis. GASTROINTESTINAL: Denies nausea, vomiting, diarrhea or chronic constipation. ENDOCRINE: Denies history of increased thirst or urination. No recent significant weight loss or gain. GENITOURINARY: Denies dysuria, frequency, or hematuria. Unit #: [id number] #: [id number] Patient: RACHID JAIN SKIN: Denies any rashes. HEMATOLOGIC: Denies history of increased bleeding or bruising. MUSCULOSKELETAL: Denies any hot, swollen joints. No generalized muscle pain. NEUROLOGIC: Denies problems with vision or speech. No frequent, severe headaches. No numbness, tingling or weakness in any extremities. Denies loss of bladder or bowel control. PHYSICAL EXAM GENERAL: He is awake, alert and oriented in no acute distress. VITAL SIGNS: Temperature 97.8, heart rate 58, respiration 18, blood pressure 138/90. HEIGHT: 5'10". WEIGHT: 190 pounds. SKIN: Warm and dry without rash or lesion. HEENT: Normocephalic. TMs not viewed. Oral and nasal passages clear. Conjunctivae clear. PERRLA. EOMs intact. NECK: Supple without lymphadenopathy or thyromegaly. HEART: Regular rate and rhythm without murmur. LUNGS: Clear. ABDOMEN: Soft, nontender. : Not done. EXTREMITIES: No evidence of cyanosis, clubbing or edema. Moves all without focal deficit. NEUROLOGICAL: Grossly within normal limits. Cranial Nerves: II: Visual gaxiola are intact. III, IV AND : Extraocular movements are intact. Pupils are equal, round and reactive to light. V: Facial sensation is grossly normal. VII: Facial movements and expression are normal. VIII: Auditory acuity grossly intact. IX, X: Uvula is midline. Phonation is normal. XI: Patient shrugs shoulders and turns head normally. XII: Tongue protrudes in the midline. Sensory and Motor Function: Sensory and motor sensation is grossly normal. Motor: moves all extremities well. IMPRESSION 1. Psychiatric admission. 2. Alcohol abuse. 3. Diabetes. 4. Hypertension. 5. Hyperlipidemia. 6. Hypothyroidism. 7. GERD. 8. Nicotine dependence. RECOMMENDATIONS Psychiatric per psychiatrist. MEDICAL: No contraindication to participate in facility activities. MEDICAL PROGNOSIS Fair. MEDICAL CONDITION Stable. Unit #: [id number] #: [id number] Patient: RACHID JAIN Dictated by... Julio C Hyatt/alfonzo TD: 01/10/2017 05:18 JOB #: [id number] HISTORY AND PHYSICAL Page 1 of 1 X MYNOR STEVEN APRN HISTORY AND PHYSICAL
--- NOTE | ~2017-01-08 | PA ---
Unit #: [id number] #: [id number] Patient: RACHID CORTES [id number] [facility] [place] [facility] [address] [place] [address] [id number] I MR#: [id number] NAME: RACHID CORTES. ROOM: P177 Age: 46 Sex: M Admission Date: 01/08/2017 : 1970 Date of Assessment: Attending Physician: Bonilla Portillo M.D. Admitting Physician: Bonilla Portillo M.D. Primary Care Physician: Primary Care Physician No PSYCHIATRIC ASSESSMENT DATE OF SERVICE 01/08/2017. IDENTIFYING DATA Mr. Cortes is a 46-year-old single white male, who is a resident of [place], [place], and is known to us from previous encounter, and was self-referred to the hospital on voluntary basis as a transfer from [facility], where he presented with alcohol intoxication. CHIEF COMPLAINT "I'm here due to detox from alcohol." HISTORY OF PRESENT ILLNESS Mr. Cortes is a 46-year-old white male with long history of alcohol dependence, who is known to us from previous encounter, and was recently discharged from my care and relapsed soon afterwards and now brought himself back to the hospital stating that he wants to detox from alcohol and that he has been drinking "pretty hard." He reports having shakes and not being well and headaches, and reports that he is unemployed and has been unemployed due to his drinking and that he is currently homeless and has poor social support system. He reports increasing depression, anxiety, irritability, restlessness, feelings of hopelessness and helplessness, but denies any suicidal ideations, intent, or plan. SUBSTANCE ABUSE HISTORY The patient reports occasional experimentation with cocaine, but reports alcohol to be his drug of choice and he reports that he has been drinking since he was 10 years old and currently has been drinking over a fifth a day. PAST PSYCHIATRIC HISTORY The patient has had history of multiple inpatient [facility]. Review of the medical records indicate that currently he is not active in any treatment program, is not seeing a psychiatrist, and is not taking any psychotropic medications. PAST MEDICAL HISTORY Hypertension and diabetes mellitus. ALLERGIES No known medication allergies. Unit #: [id number] #: [id number] Patient: RACHID CORTES PERSONAL AND SOCIAL HISTORY A 46-year-old white male, who reports that he is single, unemployed, and essentially homeless and has poor social support system. MENTAL STATUS EXAMINATION Middle-aged white male who was casually dressed and appears to be significantly older than his age and was dressed in the hospital gown and curled up in the bed and appears to be in some distress or discomfort. He was awake and alert on interaction with intact orientation to time, place, and person. His mood was anxious and depressed with a congruent affect. His speech was slow and restricted in content. His thought processes were disorganized with some looseness of associations. He denies any suicidal or homicidal ideation and also denies any auditory or visual hallucinations. His insight and judgment remain significantly impaired. DIAGNOSTIC IMPRESSION Psychiatric: Alcohol dependence, moderate and acute withdrawals; alcohol-induced mood disorder. Medical: Hypertension and diabetes mellitus. Stressors: Moderate psychosocial stressors. TREATMENT PLAN The patient has presented with history of substance abuse and mood disorder, and has been decompensating and will need inpatient hospitalization for detoxification, safety, and stabilization. We will start him on detox protocol. We will closely monitor for any worsening withdrawal symptoms. STRENGTHS 1. Cooperative. 2. Communicative. PROBLEMS 1. Chronic dysphoric symptoms. 2. Poor social support system. DISCHARGE CRITERIA This will be contingent upon the patient's ability to go through detox without having any significant withdrawal symptoms as well as his ability to stay safe to himself, particularly after discharge from the hospital. Dictated by... Ana Herr/aníbal TD: 01/09/2017 22:23 JOB #: [id number] Unit #: [id number] #: [id number] Patient: RACHID CORTES PSYCHIATRIC ASSESSMENT Page 1 of 1 X Bonilla Portillo MD X PSYCHIATRIC ASSESSMENT
--- NOTE | ~2017-01-08 | PN ---
Unit #: [id number] #: [id number] Patient: RACHID JAIN [id number] [facility] [address] [place] [address] [id number] MR#: [id number] NAME: RACHID JAIN. ROOM: 77 Age: 46 Sex: M Admission Date: 01/08/2017 : 1970 Attending Physician: Bonilla Portillo M.D. Admitting Physician: Bonilla Portillo M.D. Primary Care Physician: Primary Care Physician Betty MARTINI PROGRESS NOTES DATE 01/10/2017 DISCUSSION Mr. Jain is a 46-year-old white male who was seen today and chart was reviewed and case was discussed with the staff. Has been anxious, withdrawn and rather seclusive to himself. Meanwhile, he has been cooperative with treatment recommendations and has been taking medications and tolerating them fairly well with no reported side effects. MENTAL STATUS EXAMINATION Middle-aged white male who was casually dressed with fair personal hygiene and appears to be in no acute distress or discomfort. He was awake and alert on interaction with intact orientation. His mood was anxious with congruent affect. He denies any suicidal or homicidal ideations and also denies any auditory or visual hallucinations. His insight and judgement remains slightly impaired. TREATMENT PLAN 1. Will continue his current treatment protocol and will monitor his response and make further adjustments as needed. 2. Will continue to follow up. Dictated by... Ana Herr/ermias TD: 01/11/2017 23:02 JOB #: [id number] Unit #: [id number] #: [id number] Patient: RACHID JAIN PROGRESS NOTES Page 1 of 1 X Bonilla Portillo MD PROGRESS NOTE
--- NOTE | ~2017-01-08 | PN ---
Unit #: [id number] #: [id number] Patient: RACHID JAIN [id number] [facility] [address] [place] [address] [id number] MR#: [id number] NAME: RACHID JAIN. ROOM: 77 Age: 46 Sex: M Admission Date: 01/08/2017 : 1970 Attending Physician: Bonilla Portillo M.D. Admitting Physician: Bonilla Portillo M.D. Primary Care Physician: Primary Care Physician Betty MARTINI PROGRESS NOTES DATE January 09, 2017 DISCUSSION Mr. Jain is a 46-year-old white male, with alcohol dependence, who was seen today and chart was reviewed and the case was discussed with the staff. He was curled up in his bed and reports not feeling good and appears to be going through acute detox. Meanwhile, he has been cooperative with the treatment recommendations and he has not shown any agitation or aggression, and has been taking the medications and tolerating them fairly well with no reported side effects. MENTAL STATUS EXAMINATION Middle-aged white male, who was casually dressed with a marginal personal hygiene and appears to be in some distress and discomfort. He was awake and alert with intact orientation. His mood is anxious with a congruent affect. He denies any suicidal or homicidal ideations. His insight and judgment remain slightly impaired. TREATMENT PLAN 1. We will continue him on his current treatment protocol, and will monitor his response, and make further adjustments as needed. 2. We will continue to followup. Dictated by... Ana Herr/antwon TD: 01/10/2017 07:37 JOB #: [id number] Unit #: [id number] #: [id number] Patient: RACHID JAIN PROGRESS NOTES Page 1 of 1 X Bonilla Portillo MD PROGRESS NOTE
--- NOTE | ~2017-01-08 | PN ---
Unit #: [id number] #: [id number] Patient: RACHID JAIN [id number] [facility] [address] [place] [address] [id number] MR#: [id number] NAME: RACHID JAIN ROOM: 77 Age: 46 Sex: M Admission Date: 01/08/2017 : 1970 Attending Physician: Bonilla Portillo M.D. Admitting Physician: Bonilla Portillo M.D. Primary Care Physician: Primary Care Physician Betty MARTINI PROGRESS NOTES DATE OF SERVICE: 01/10/2017 SUBJECTIVE Mr. Jain is a 46-year-old white male with mood disorder and alcohol dependence, who was seen today and chart was reviewed, and case was discussed with the staff. He remains anxious, withdrawn, depressed, and rather seclusive to himself. Meanwhile, he has been cooperative with treatment recommendations and has been taking the medications and tolerating them fairly well with no reported side effects. MENTAL STATUS EXAMINATION An elderly white male who was casually dressed with fair personal hygiene, appears to be in no acute distress or discomfort. He was awake and alert on interaction with intact orientation. His mood was anxious with a congruent affect. He denies any suicidal or homicidal ideations. His insight and judgment remain slightly impaired. TREATMENT PLAN 1. We will continue him on his current treatment protocol. We will monitor his response and make further adjustments as needed. 2. We will continue to follow up. Dictated by... Ana Herr/aníbal TD: 01/11/2017 23:32 JOB #: [id number] [facility] PROGRESS NOTES Page 1 of 1 X Bonilla Portillo MD PROGRESS NOTE
[2017-01-09 11:40] LABS: URINE APPEARANCE CLEAR; URINE BILIRUBIN NEG (NEG); URINE BLOOD NEG (NEG); URINE COLOR DK YELLOW; URINE GLUCOSE 250 MG/DL (NEG); URINE KETONE NEG (NEG); URINE LEUKOCYTE ESTERASE TRACE (NEG); URINE NITRATE NEG (NEG); URINE PH 6.5 (5-8); URINE PROTEIN NEG (NEG); URINE SPECIFIC GRAVITY 1.015 (1.003-1.035)
[2017-01-09 11:44] LABS: URBCS1 AUWI 0-2 /[HPF] (0-2); URINE BACTERIA AUWI NEG (NEGATIVE); URINE SQUAMOUS EPITHELIAL CELL NONE SEEN /[HPF]
[2017-01-09 12:01] LABS: AMPHETAMINE NEG (NEG); BARBITURATES NEG (NEG); BENZODIAZEPINES POS (NEG); COCAINE POS (NEG); MARIJUANA NEG (NEG); OPIATES NEG (NEG); TRICYCLIC ANTIDEPRESSANTS NEG (NEG); U METHADONE NEG (NEG)
[2017-01-09 13:52] LABS: BASOPHIL% 0.5 % (0-2.5); EOSINOPHIL# 0.2 X10e3 (0-0.7); EOSINOPHIL% 2.4 % (0.0-7.0); HEMATOCRIT 41.6 % (38.0-50.0); HEMOGLOBIN 13.9 gm/dL (13.0-16.0); LYMPHOCYTE# 1.7 X10e3 (1.0-3.5); LYMPHOCYTE% 23.7 % (17.0-45.0); MEAN CORPUSCULAR HEMOGLOBIN 31.4 PG (28-34); MEAN CORPUSCULAR HGB CONC 33.5 g/dL (30-36); MEAN PLATELET VOLUME 8.9 FL (6.5-11.5); MONOCYTE# 0.4 X10e3 (0-1.0); NEUTROPHIL# 4.9 X10e3 (1.5-7.1); NEUTROPHIL% 67.4 % (40-75); PLATELET COUNT 191 X10e3 (140-420); RED BLOOD COUNT 4.43 X10e (3.90-5.60); RED CELL DISTRIBUTION WIDTH 13.5 % (11.0-15.5); WHITE BLOOD COUNT 7.2 X10e3 (4.0-10.5)
[2017-01-09 13:53] LABS: DIFF IND NO
[2017-01-09 14:14] LABS: ALBUMIN SERUM 3.8 g/dL (3.5-5.0); BILIRUBIN,TOTAL 0.5 mg/dL (0.2-2.0); BUN/CREATININE RATIO 17.5; CALCIUM SERUM 9.4 mg/dL (8.4-10.2); CREATININE SERUM 0.8 mg/dL (0.6-1.4); GLOM FILT RATE Estimated 105.7 mL/min (>60); POTASSIUM 4.4 mmol/L (3.5-5.1); PROTEIN TOTAL SERUM 6.9 g/dL (6.0-8.3)
== END 2017-01-12 08:35 | DRG 897 ==
LOC: P1E 13:08
PROVIDERS: Psychiatry & Neurology Psychiatry
DX: F10.239 Alcohol dependence with withdrawal, unspecified (principal); F10.24 Alcohol dependence with alcohol-induced mood disorder; I10 Essential (primary) hypertension; E11.9 Type 2 diabetes mellitus without complications; E78.5 Hyperlipidemia, unspecified; E03.9 Hypothyroidism, unspecified; K21.9 Gastro-esophageal reflux disease without esophagitis; F17.210 Nicotine dependence, cigarettes, uncomplicated
CPT/HCPCS: 80053; 80307; 81003; 82947; 85025; 86592